=== PATIENT | male | born 1955 | race Caucasian/White ===

== ENCOUNTER 2017-11-30 17:30 | Emergency (ER) | payer MEDICAID ==
--- NOTE | 2017-11-30 18:13 | ED PDOC ---
HPI: Psych/Substance Abuse Time Seen by Provider: 11/30/17 17:55 Chief Complaint (Nursing): Alcohol Ingestion Chief Complaint (Provider): Alcohol Intoxication ED Caveat: Intoxicated History Per: EMS History/Exam Limitations: intoxication Onset/Duration Of Symptoms: Hrs Current Symptoms Are (Timing): Still Present Suicide/Self Injury Attempted (Context): None Modifying Factor(s): Alcohol Additional Complaint(s): 62 year old male brought into the Ed by EMS for alcohol intoxication. Patient history is limited due to his intoxicated state Past Medical History Reviewed: Historical Data, Nursing Documentation, Vital Signs Vital Signs: Last Vital Signs Temp 98.8 F 11/30/17 17:35 Pulse 90 11/30/17 17:35 Resp 19 11/30/17 17:35 BP 140/80 11/30/17 17:35 Pulse Ox 98 11/30/17 17:35 - Medical History PMH: No Chronic Diseases - Family History Family History: States: No Known Family Hx - Allergies Allergies/Adverse Reactions: Allergies Allergy/AdvReac Type Severity Reaction Status Date / Time No Known Allergies Allergy Verified 11/30/17 17:39 Review of Systems Review Of Systems: ROS cannot be obtained secondary to pt's inabilty to answer questions. (cannot be obtained due to patients intoxicated state) Physical Exam - Reviewed Nursing Documentation Reviewed: Yes Vital Signs Reviewed: Yes - Physical Exam Appears: Positive for: Non-toxic (alcohol on breath), No Acute Distress Head Exam: Positive for: NORMAL INSPECTION Skin: Positive for: Normal Color, Warm, Dry. Negative for: Rash Eye Exam: Positive for: Normal appearance, EOMI, PERRL ENT: Positive for: Normal ENT Inspection Neck: Positive for: Normal, Painless ROM, Supple Cardiovascular/Chest: Positive for: Regular Rate, Rhythm. Negative for: Tachycardia Respiratory: Positive for: Normal Breath Sounds. Negative for: Wheezing, Respiratory Distress Gastrointestinal/Abdominal: Positive for: Normal Exam, Bowel Sounds, Soft. Negative for: Guarding Back: Positive for: Normal Inspection. Negative for: L CVA Tenderness, R CVA Tenderness Extremity: Positive for: Normal ROM. Negative for: Tenderness, Deformity Neurologic/Psych: Negative for: Alert, Oriented - ECG O2 Sat by Pulse Oximetry: 98 (RA) Pulse Ox Interpretation: Normal Medical Decision Making Medical Decision Makin Initial Impression 62 year old male presenting with alcohol intoxication Initial Plan: * Alcohol Serum * Reevaluation * * 2346 Pt asleep , well appearing. however will need more time in ED until clinically sober. Documented by Aide Tirado acting as a scribe for Yasmeen Oliva PA-C. All medical record entries made by the Scribe were at my direction and personally dictated by me. I have reviewed the chart and agree that the record accurately reflects my personal performance of the history, physical exam, medical decision making, and the department course for this patient. I have also personally directed, reviewed, and agree with the discharge instructions and disposition. Disposition - Clinical Impression Clinical Impression: Alcohol abuse - Patient ED Disposition Is Patient to be Admitted: Transfer of Care - Disposition Disposition: Routine/Home Disposition Time: 00:00 Condition: STABLE Forms: [facility] (Amharic) Handoff Comments: intoxication
[2017-11-30 22:15] VITALS: RESP 18; TEMP 97.5
[2017-12-01 02:33] VITALS: BP 139/81; PULSE 94; O2SAT 95
== END 2017-12-01 03:35 | disposition home or self-care (01) ==
LOC: H.ER 17:30
DX: F10.129 Alcohol abuse with intoxication, unspecified (principal); Y90.8 Blood alcohol level of 240 mg/100 ml or more

== ENCOUNTER 2018-02-16 19:27 | Emergency (ER) | payer MEDICAID ==
[2018-02-16 19:32] VITALS: BP 143/81; RESP 16; TEMP 95.6; O2SAT 98
[2018-02-16 20:06] LABS: BASO # 0.1 K/uL (0.0-0.2); BASO % 1.3 % (0.0-2.0); EOS # 0.2 K/uL (0.0-0.7); EOS % 5.3 % (0.0-4.0); HEMOGLOBIN 12.1 g/dL (12.0-18.0); LYMPH # 1.5 K/uL (1.0-4.3); LYMPH % 32.8 % (20.0-40.0); MEAN CELL VOLUME 90.1 fl (80.0-94.0); MEAN CORPUSCULAR HEMOGLOBIN 29.2 pg (27.0-31.0); MEAN CORPUSCULAR HGB CONC 32.4 g/dL (33.0-37.0); MEAN PLATELET VOLUME 7.8 fl (7.2-11.7); MONO # 0.3 K/uL (0.0-0.8); MONO % 7.3 % (0.0-10.0); NEUT # 2.5 K/uL (1.8-7.0); NEUT % 53.3 % (50.0-75.0); NRBC % 0.2 % (0.0-0.0); RBC 4.16 Mil/uL (4.40-5.90); WHITE BLOOD COUNT 4.7 K/uL (4.8-10.8)
[2018-02-16 20:28] LABS: ALB/GLOB RATIO 1.1 (1.0-2.1); ALBUMIN 3.9 g/dL (3.5-5.0); ALT/SGPT 31 U/L (21-72); AST/SGOT 43 U/L (17-59); BLOOD UREA NITROGEN 12 mg/dl (9-20); CALCIUM 8.7 mg/dL (8.4-10.2); GFR AFRICAN-AMERICAN > 60; GFR NON-AFRICAN AMERICAN > 60
[2018-02-16] MEDS ORDERED: Naproxen 500 MG TAB PO STA (21:00)
--- NOTE | 2018-02-16 22:00 | ED PDOC ---
HPI: Psych/Substance Abuse Time Seen by Provider: 02/16/18 19:36 Chief Complaint (Nursing): Alcohol Ingestion Chief Complaint (Provider): Alcohol intoxication ED Caveat: Intoxicated History Per: Patient, EMS History/Exam Limitations: intoxication Additional Complaint(s): 62yo male, brought to ED by EMS for evaluation after he was found on street intoxicated. Patient admits to drinking alcohol and is also complaining of chest pain. Patient is requesting his "heart to be checked out." Patient also states that he is homeless. The history provided is unreliable due to the patient's intoxicated status. Past Medical History Reviewed: Historical Data Vital Signs: Last Vital Signs Temp 95.6 F L 02/16/18 19:28 Pulse 86 02/16/18 19:28 Resp 16 02/16/18 19:28 BP 143/81 02/16/18 19:28 Pulse Ox 98 02/16/18 19:28 - Medical History PMH: Benign Prostatic Hyperplasia, HTN Other PMH: "leg pains" - Surgical History Surgical History: No Surg Hx - Family History Family History: States: Unknown Family Hx - Social History Alcohol: > 2 Drinks/Day Drugs: Denies - Immunization History Hx Tetanus Toxoid Vaccination: No Hx Influenza Vaccination: No Hx Pneumococcal Vaccination: No - Allergies Allergies/Adverse Reactions: Allergies Allergy/AdvReac Type Severity Reaction Status Date / Time No Known Allergies Allergy Verified 11/30/17 17:39 Review of Systems ROS Statement: Except As Marked, All Systems Reviewed And Found Negative (as per HPI) Cardiovascular: Positive for: Chest Pain Psych: Positive for: Other (alcohol intoxication) Physical Exam - Reviewed Nursing Documentation Reviewed: Yes Vital Signs Reviewed: Yes - Physical Exam Appears: Positive for: No Acute Distress (intoxicated) Head Exam: Positive for: ATRAUMATIC, NORMOCEPHALIC Skin: Positive for: Warm, Dry Eye Exam: Positive for: EOMI, PERRL, Conjunctival injection ENT: Positive for: Pharynx Is (clear), Other (AOB) Neck: Positive for: Painless ROM, Supple Cardiovascular/Chest: Positive for: Regular Rate, Rhythm. Negative for: Murmur Respiratory: Positive for: Normal Breath Sounds. Negative for: Wheezing, Respiratory Distress Gastrointestinal/Abdominal: Positive for: Soft, Other (protuberent obese abdomen ). Negative for: Tenderness Back: Positive for: Normal Inspection Extremity: Positive for: Pedal Edema (bilateral lower leg pitting edema). Negative for: Deformity Neurologic/Psych: Positive for: Oriented (x2), Other (slurred speech, mild lethargy). Negative for: Motor/Sensory Deficits - Laboratory Results Result Diagrams: 02/16/18 19:55 02/16/18 19:55 - ECG ECG: Positive for: Interpreted By Me, Viewed By Me ECG Rhythm: Positive for: Normal QRS, Normal ST Segment, Sinus Rhythm Rate: 81 O2 Sat by Pulse Oximetry: 98 (RA) Pulse Ox Interpretation: Normal Medical Decision Making Medical Decision Making: Impression: Alcohol intoxication, chest pain Plan: -- EKG -- UDS -- Naproxen 500 mg PO -- Labs Scribe Attestation: Documented by Jeannette Bhakta, acting as a scribe for Alisha Tamayo MD Provider Scribe Attestation: All medical record entries made by the Scribe were at my direction and personally dictated by me. I have reviewed the chart and agree that the record accurately reflects my personal performance of the history, physical exam, medical decision making, and the department course for this patient. I have also personally directed, reviewed, and agree with the discharge instructions and disposition. Disposition - Clinical Impression Clinical Impression: Alcohol abuse with intoxication - Patient ED Disposition Is Patient to be Admitted: Transfer of Care - Disposition Disposition: Transfer of Care Disposition Time: 00:00 Condition: FAIR Patient Signed Over To: Balta Mcelroy Handoff Comments: Pending sobriety, reeval, final ER disposition
[2018-02-16 22:15] VITALS: PULSE 81
[2018-02-16 22:40] LABS: BENZODIAZEPINES, UR NEGATIVE (NEGATIVE)
[2018-02-16 22:41] LABS: BARBITURATES, UR NEGATIVE (NEGATIVE); OPIATES, UR NEGATIVE (NEGATIVE); PHENCYCLIDINE, UR NEGATIVE (NEGATIVE)
--- NOTE | 2018-02-17 00:01 | ED PDOC ---
- Laboratory Results Result Diagrams: 02/16/18 19:55 02/16/18 19:55 - ECG O2 Sat by Pulse Oximetry: 98 (RA) Medical Decision Making Medical Decision Makin Patient signed out to provider from Dr. Tamayo pending sobriety. 0600 Upon re-evaluation patient is awake, alert, and oriented x3. Patient walks with a steady gait and is stable for discharge home. Scribe Attestation: Documented by Claudia Bettencourt acting as a scribe for Reggie Solano MD. DO Scribe Attestation: All medical record entries made by the Scribe were at my direction and personally dictated by me. I have reviewed the chart and agree that the record accurately reflects my personal performance of the history, physical exam, medical decision making, and the department course for this patient. I have also personally directed, reviewed, and agree with the discharge instructions and disposition. Disposition - Clinical Impression Clinical Impression: Alcohol abuse with intoxication - POA Present On Arrival: None - Disposition Disposition: Routine/Home Disposition Time: 06:00 Condition: STABLE Instructions: Alcohol Abuse and Alcoholism (DC) Forms: [employer] Connect (Finnish)
--- NOTE | 2018-02-17 08:58 | CARD ---
APPROVED REPORT EKG Measurement Heart [id number] <Conclusion> Normal sinus rhythm Normal ECG
== END 2018-02-17 06:55 | disposition home or self-care (01) ==
LOC: H.ER 19:27
DX: F10.129 Alcohol abuse with intoxication, unspecified (principal); I10 Essential (primary) hypertension; Z59.0 Homelessness; N40.0 Benign prostatic hyperplasia without lower urinary tract symptoms

== ENCOUNTER 2018-10-26 23:17 | Emergency (ER) | payer MEDICAID ==
[2018-10-27] MEDS ORDERED: Permethrin 5% CREAM TOP STA (00:33)
[2018-10-27 01:21] LABS: BASO % 1.3 % (0.0-2.0); EOS # 0.2 K/uL (0.0-0.7); EOS % 6.2 % (0.0-4.0); HEMOGLOBIN 12.2 g/dL (12.0-18.0); LYMPH # 1.3 K/uL (1.0-4.3); LYMPH % 34.8 % (20.0-40.0); MEAN CELL VOLUME 99.1 fl (80.0-94.0); MEAN CORPUSCULAR HEMOGLOBIN 31.9 pg (27.0-31.0); MEAN CORPUSCULAR HGB CONC 32.2 g/dL (33.0-37.0); MEAN PLATELET VOLUME 8.4 fl (7.2-11.7); MONO # 0.4 K/uL (0.0-0.8); MONO % 12.1 % (0.0-10.0); NEUT # 1.7 K/uL (1.8-7.0); NEUT % 45.6 % (50.0-75.0); NRBC % 0.1 % (0.0-0.0); RBC 3.84 Mil/uL (4.40-5.90); RED CELL DISTRIBUTION WIDTH 17.8 % (11.5-14.5); WHITE BLOOD COUNT 3.7 K/uL (4.8-10.8)
[2018-10-27 01:24] LABS: ALB/GLOB RATIO 1.1 (1.0-2.1); ALBUMIN 3.5 g/dL (3.5-5.0); ALT/SGPT 26 U/L (21-72); AST/SGOT 40 U/L (17-59); BLOOD UREA NITROGEN 14 mg/dl (9-20); CALCIUM 8.6 mg/dL (8.4-10.2); GFR NON-AFRICAN AMERICAN > 60
[2018-10-27 01:38] LABS: BARBITURATES, UR NEGATIVE (NEGATIVE); BENZODIAZEPINES, UR NEGATIVE (NEGATIVE); OPIATES, UR NEGATIVE (NEGATIVE); PHENCYCLIDINE, UR NEGATIVE (NEGATIVE)
[2018-10-27 01:43] LABS: SQUAMOUS EPITHIAL < 1 /hpf (0-5); URINE BACTERIA RARE (<OCC); URINE BILIRUBIN NEGATIVE (NEGATIVE); URINE BLOOD NEGATIVE (NEGATIVE); URINE CLARITY CLEAR (Clear); URINE COLOR STRAW (YELLOW); URINE GLUCOSE (UA) NEG (Normal); URINE LEUKOCYTE ESTERASE NEG Leu/uL (Negative); URINE PROTEIN NEGATIVE (NEGATIVE); URINE UROBILINOGEN 0.2-1.0 mg/dL (0.2-1.0)
--- NOTE | 2018-10-27 02:51 | ED PDOC ---
HPI: Psych/Substance Abuse Time Seen by Provider: 10/27/18 00:14 Chief Complaint (Nursing): Alcohol Ingestion Chief Complaint (Provider): Alcohol Ingestion History Per: Patient, EMS History/Exam Limitations: intoxication (of patient) Onset/Duration Of Symptoms: Mins (prior to arrival) Current Symptoms Are (Timing): Still Present Additional Complaint(s): 63 year old male presents to the ED via EMS for evaluation after being found publicly intoxicated. He admits to drinking alcohol today and additionally reports that he lives [place] the [place] and looked down today to see "bugs" all over his body. Otherwise denies fever, sick contacts, recent travel, trauma, and falls. Of note, due to patient's intoxication, his pmhx was unobtainable, and the history is limited. PMD: none provided Past Medical History Reviewed: Unable To Obtain Vital Signs: Last Vital Signs Temp 97.8 F 10/27/18 00:04 Pulse 81 10/27/18 00:04 Resp 20 10/27/18 00:04 BP 127/80 10/27/18 00:04 Pulse Ox 95 10/27/18 00:04 - Family History Family History: States: No Known Family Hx - Allergies Allergies/Adverse Reactions: Allergies Allergy/AdvReac Type Severity Reaction Status Date / Time No Known Allergies Allergy Verified 10/27/18 00:07 Review of Systems ROS Statement: Except As Marked, All Systems Reviewed And Found Negative Constitutional: Negative for: Fever Skin: Positive for: Other (bugs on skin) Psych: Positive for: Other (alcohol ingestion) Physical Exam - Reviewed Nursing Documentation Reviewed: Yes Vital Signs Reviewed: Yes - Physical Exam Appears: Positive for: No Acute Distress (but intoxicated appearing with alcohol on breath) Head Exam: Positive for: ATRAUMATIC, NORMOCEPHALIC Skin: Positive for: Normal Color. Negative for: Rash Eye Exam: Positive for: Normal appearance ENT: Positive for: Normal ENT Inspection Neck: Positive for: Normal Cardiovascular/Chest: Positive for: Regular Rate, Rhythm Respiratory: Positive for: Normal Breath Sounds. Negative for: Respiratory Distress Gastrointestinal/Abdominal: Positive for: Normal Exam, Soft. Negative for: Tenderness Extremity: Positive for: Normal ROM Neurologic/Psych: Positive for: Alert (and awake), Other (slurred speech) - Laboratory Results Result Diagrams: 10/27/18 01:10/27/18 01:08 - ECG O2 Sat by Pulse Oximetry: 95 (RA) Pulse Ox Interpretation: Normal Medical Decision Making Medical Decision Making: Time: 32 Initial Impression: alcohol intoxication Initial Plan: --Alcohol serum --CMP --Drug screen --CBC with differential --Accucheck --Urinalysis --Permethrin 5% 1 applic TOP 0200 Sleeping comfortably. 0421 Awake but gait is still unsteady. -- Scribe Attestation: Documented by Sarah Davis, acting as a scribe for Chandler Crisostomo PA-C. Provider Scribe Attestation: All medical record entries made by the Scribe were at my direction and perso felipe dictated by me. I have reviewed the chart and agree that the record accurately reflects my personal performance of the history, physical exam, medical decision making, and the department course for this patient. I have also personally directed, reviewed, and agree with the discharge instructions and disposition. Disposition - Clinical Impression Clinical Impression: Alcohol intoxication - Patient ED Disposition Is Patient to be Admitted: Transfer of Care (Dr. Solano continued care at the end of my shift) - Disposition Referrals: [facility] [Outside] Disposition Time: 05:00 Condition: STABLE Additional Instructions: AMARI PEACOCK, thank you for letting us take care of you today. Your provider was Reggie Solano MD and you were treated for ETOH. The emergency medical care you received today was directed at your acute symptoms. If you were prescribed any medication, please fill it and take as directed. It may take several days for your symptoms to resolve. Return to the Emergency Department if your symptoms worsen, do not improve, or if you have any other problems. Please contact your doctor or call one of the physicians/clinics you have been referred to that are listed on the Patient Visit Information form that is included in your discharge packet. Bring any paperwork you were given at discharge with you along with any medications you are taking to your follow up visit. Our treatment cannot replace ongoing medical care by a primary care provider outside of the emergency department. Thank you for allowing the [facility] team to be part of your care today. If you had an X-Ray or CT scan: A Radiologist will review the ED reading if any change in treatment is needed we will contact you. If you had a blood, urine, or wound culture: It will take several days for the results, if any change in treatment is needed we will contact you. If you had an STI test: It will take 48 hours for the results. Please call after 1 week if you have not heard back. Instructions: Alcohol Abuse and Alcoholism (DC) Forms: [employer] (Italian)
[2018-10-27 06:52] VITALS: BP 138/86; PULSE 89; RESP 18; TEMP 98.2
[2018-10-27 22:51] VITALS: O2SAT 95
== END 2018-10-27 06:50 | disposition home or self-care (01) ==
LOC: EDBD → H.ER 23:17 → MERGE 23:17 → H.ER 10-27 06:50
DX: F10.129 Alcohol abuse with intoxication, unspecified (principal)

== ENCOUNTER 2018-11-03 20:31 | Emergency (ER) | payer MEDICAID ==
[2018-11-03 20:37] VITALS: TEMP 96.8
[2018-11-03 21:20] LABS: BASO # 0.1 K/uL (0.0-0.2); BASO % 1.4 % (0.0-2.0); EOS # 0.2 K/uL (0.0-0.7); EOS % 4.1 % (0.0-4.0); HEMOGLOBIN 13.2 g/dL (12.0-18.0); LYMPH # 1.7 K/uL (1.0-4.3); LYMPH % 36.3 % (20.0-40.0); MEAN CELL VOLUME 98.4 fl (80.0-94.0); MEAN CORPUSCULAR HEMOGLOBIN 32.8 pg (27.0-31.0); MEAN CORPUSCULAR HGB CONC 33.4 g/dL (33.0-37.0); MEAN PLATELET VOLUME 8.1 fl (7.2-11.7); MONO # 0.4 K/uL (0.0-0.8); MONO % 9.2 % (0.0-10.0); NEUT # 2.3 K/uL (1.8-7.0); NRBC % 0.1 % (0.0-0.0); RBC 4.01 Mil/uL (4.40-5.90); RED CELL DISTRIBUTION WIDTH 18.2 % (11.5-14.5); WHITE BLOOD COUNT 4.6 K/uL (4.8-10.8)
[2018-11-03 21:20] LABS: VENOUS BLOOD GAS BASE EXCESS 2.9 mmol/L (0.0-2.0); VENOUS BLOOD GAS PCO2 54 mmHg (40-60); VENOUS BLOOD GAS PO2 25 mm/Hg (30-55); VENOUS BLOOD PH 7.35 (7.32-7.43)
[2018-11-03 21:37] LABS: CARBAMAZEPINE < 3.0 ug/mL (4.0-12.0); DILANTIN (PHENYTOIN) < 3.0 ug/ML (10-20)
[2018-11-03 21:38] LABS: URINE BACTERIA RARE (<OCC); URINE BILIRUBIN NEGATIVE (NEGATIVE); URINE BLOOD NEGATIVE (NEGATIVE); URINE CLARITY CLEAR (Clear); URINE COLOR STRAW (YELLOW); URINE GLUCOSE (UA) NEG (NEGATIVE); URINE LEUKOCYTE ESTERASE NEG Leu/uL (Negative); URINE PROTEIN NEGATIVE (NEGATIVE); URINE UROBILINOGEN 0.2-1.0 mg/dL (0.2-1.0)
[2018-11-03 21:38] LABS: VALPROIC ACID < 10.0 ug/mL (50.0-100.0)
[2018-11-03] MEDS ORDERED: Sodium Chloride 0.9% 1,000 ML IV STA (21:38)
[2018-11-03 21:51] LABS: BENZODIAZEPINES, UR NEGATIVE (NEGATIVE)
[2018-11-03 21:54] LABS: BARBITURATES, UR NEGATIVE (NEGATIVE); OPIATES, UR NEGATIVE (NEGATIVE); PHENCYCLIDINE, UR NEGATIVE (NEGATIVE)
[2018-11-03 21:55] LABS: ALB/GLOB RATIO 1.1 (1.0-2.1); ALBUMIN 3.8 g/dL (3.5-5.0); ALT/SGPT 38 U/L (21-72); AST/SGOT 67 U/L (17-59); CALCIUM 8.6 mg/dL (8.4-10.2); GFR NON-AFRICAN AMERICAN > 60
[2018-11-03 21:56] LABS: BLOOD UREA NITROGEN 11 mg/dl (9-20)
--- NOTE | 2018-11-03 22:44 | ED PDOC ---
HPI: Psych/Substance Abuse Time Seen by Provider: 11/03/18 20:40 Chief Complaint (Nursing): Seizure Chief Complaint (Provider): alcohol intoxication ED Caveat: Intoxicated History Per: Patient, EMS Onset/Duration Of Symptoms: Hrs (today) Current Symptoms Are (Timing): Still Present Additional Complaint(s): Arnie Muñoz is a 63 year old male, with a past medical history of alcohol abuse, who was brought to the emergency department by EMS for public intoxication. Per EMS, patient was at a store trying to buy women's bag but was noted to be intoxicated. Store spooler called the police. EMS report patient had soiled himself with urine and would have jerking movements to bilateral upper extremities but would be awake during the episodes. EMS further state they had s een this jerking behavior in him previously. Patient admits to alcohol usage but history is limited by intoxication. PMD: Unable to obtain Past Medical History Reviewed: Historical Data, Nursing Documentation, Vital Signs Vital Signs: Last Vital Signs Temp 96.8 F L 11/03/18 20:34 Pulse 75 11/03/18 20:34 Resp 16 11/03/18 20:34 BP 163/102 H 11/03/18 20:34 Pulse Ox 99 11/03/18 20:34 - Medical History PMH: HTN - Surgical History Surgical History: No Surg Hx Denies: Coronary Stent, Pacemaker - Family History Family History: States: Unknown Family Hx - Allergies Allergies/Adverse Reactions: Allergies Allergy/AdvReac Type Severity Reaction Status Date / Time No Known Allergies Allergy Verified 11/03/18 20:34 Review of Systems Review Of Systems: ROS cannot be obtained secondary to pt's inabilty to answer questions. Physical Exam - Reviewed Nursing Documentation Reviewed: Yes Vital Signs Reviewed: Yes - Physical Exam Appears: Positive for: No Acute Distress (No signs of trauma) Head Exam: Positive for: ATRAUMATIC, NORMAL INSPECTION, NORMOCEPHALIC Skin: Positive for: Normal Color, Warm, Dry Eye Exam: Positive for: Normal appearance, EOMI, PERRL Neck: Positive for: Normal, Painless ROM Cardiovascular/Chest: Positive for: Regular Rate, Rhythm. Negative for: Murmur Respiratory: Positive for: Normal Breath Sounds. Negative for: Respiratory Distress Gastrointestinal/Abdominal: Positive for: Normal Exam, Soft. Negative for: Tenderness Extremity: Positive for: Normal ROM (upper and lower extremities). Negative for: Deformity, Swelling Neurologic/Psych: Positive for: Alert, Gait (unsteady), Other (slurred speech). Negative for: Oriented (x1) - Laboratory Results Result Diagrams: 11/03/18 21:01 11/03/18 21:01 - ECG O2 Sat by Pulse Oximetry: 99 (RA) Pulse Ox Interpretation: Normal Medical Decision Making Medical Decision Making: Time: 20:40 A/P: 63 y/o male presenting for alcohol intoxication. Description of jerking does not sound to be epileptic. However, will get blood work and CT to evaluate. Likely presenting primarily due to alcohol intoxication. Will continue to monitor. Initial Plan: --VBG Shock Panel --Head w/o contrast [CT] --Alcohol serum --Carbamazepine --CMP --CPK --Dilantin --Drug screen, urine --[place] --Magnesium --Valproic acid --CBC w/ differential --Sodium Chloride 1,000 ml IV 1,000 mls/hr --Urinalysis --Reevaluation 2141 Head w/o contrast [CT] Findings: The study shows normal configuration of sella turcica. There are no intra or extra-axial collections. There is no mass effect or midline shift. There is no evidence of hematoma formation. No hydrocephalus is present. No abnormal calcifications are noted. Changes of diffuse cerebellar and cerebral atrophy are noted with symmetrically dilated ventricles and cortical sulci. There are mild bilateral periventricular hypolucencies compatible with white matter ischemic disease. No significant other abnormalities are seen either in the posterior fossa or supratentorial compartment. There is mucosal thickening and partial opacification involving left frontal, bilateral ethmoid air cells and maxillary sinuses consistent with chronic sinusitis. IMPRESSION: 1. Diffuse age-appropriate cerebellar and cerebral atrophy. 2. Bilateral periventricular hypolucencies compatible with chronic white matter ischemic disease. 3. Sinusitis as above. 4. No evidence of acute intracranial pathology. 300 Patient waking up Steady gait on examination Alert, oriented 530 Patient with steady gait, no longer intoxicated appearing Patient alert and oriented Stable for discharge -------- Scribe Attestation: Documented by Reynold Person, acting as a scribe for Balta Mcelroy MD. Provider Scribe Attestation: All medical record entries made by the Scribe were at my direction and personally dictated by me. I have reviewed the chart and agree that the record accurately reflects my personal performance of the history, physical exam, medical decision making, and the department course for this patient. I have also personally directed, reviewed, and agree with the discharge instructions and disposition. Disposition - Clinical Impression Clinical Impression: Alcohol intoxication - Patient ED Disposition Is Patient to be Admitted: No - Disposition Referrals: Alcoholics Anonymous [Outside] Disposition: Routine/Home Disposition Time: 05:21 Condition: GOOD Instructions: Alcohol Abuse and Alcoholism (DC) Forms: [facility] (Kenyan) Print Language: KHMER
[2018-11-04 05:26] VITALS: BP 130/75; PULSE 88; RESP 20; O2SAT 96
--- NOTE | 2018-11-04 11:36 | CT ---
Date of service: 11/03/2018 PROCEDURE: CT HEAD WITHOUT CONTRAST. HISTORY: AMS, possible seizure COMPARISON: None available. TECHNIQUE: Axial computed tomography images were obtained through the head/brain without intravenous contrast. Radiation dose: Total exam DLP = 796.64 mGy-cm. This CT exam was performed using one or more of the following dose reduction techniques: Automated exposure control, adjustment of the mA and/or kV according to patient size, and/or use of iterative reconstruction technique. FINDINGS: HEMORRHAGE: No intracranial hemorrhage. BRAIN: No mass effect or edema. No atrophy or chronic microvascular ischemic changes. VENTRICLES: Unremarkable. No hydrocephalus. CALVARIUM: Unremarkable. PARANASAL SINUSES: Unremarkable as visualized. No significant inflammatory changes. MASTOID AIR CELLS: Unremarkable as visualized. No inflammatory changes. OTHER FINDINGS: None. IMPRESSION: Normal CT of the Head.
== END 2018-11-04 06:16 | disposition home or self-care (01) ==
LOC: MERGE 20:31 → EDBD 20:31 → H.ER 20:31
DX: F10.129 Alcohol abuse with intoxication, unspecified (principal); R56.9 Unspecified convulsions; I10 Essential (primary) hypertension; J32.9 Chronic sinusitis, unspecified
CPT/HCPCS: 70450; 80053; 80156; 80164; 80178; 80185; 80320; 80324; 80345; 80346; 80349; 80353; 80358; 80361; 81003; 82550; 82803; 82948; 83735; 83992; 85025; 96360; 99285; J7030

== ENCOUNTER 2018-11-04 19:15 | Emergency (ER) | payer MEDICAID ==
[2018-11-04 19:23] VITALS: TEMP 98
--- NOTE | 2018-11-04 20:43 | ED PDOC ---
HPI: Psych/Substance Abuse Time Seen by Provider: 11/04/18 19:24 Chief Complaint (Nursing): Alcohol Ingestion Chief Complaint (Provider): Alcohol Ingestion History Per: EMS History/Exam Limitations: intoxication Onset/Duration Of Symptoms: Unknown Current Symptoms Are (Timing): Still Present Suicide/Self Injury Attempted (Context): None Modifying Factor(s): Alcohol Additional Complaint(s): 63 y/o male brought in by EMS for public alcohol intoxication. Patient admits to drinking alcohol. Additionally, patient denies any drug use and any other injury. History is obtained from EMS. History is limited due to the patient's intoxication. Past Medical History Reviewed: Historical Data, Nursing Documentation, Vital Signs Vital Signs: Last Vital Signs Temp 98 F 11/04/18 19:21 Pulse 101 H 11/04/18 19:21 Resp 18 11/04/18 19:21 BP 124/85 11/04/18 19:21 Pulse Ox 98 11/04/18 19:21 - Medical History PMH: Benign Prostatic Hyperplasia, HTN - Surgical History Surgical History: No Surg Hx Denies: Coronary Stent, Pacemaker - Family History Family History: States: Unknown Family Hx - Social History Alcohol: > 2 Drinks/Day Drugs: Denies - Immunization History Hx Tetanus Toxoid Vaccination: No Hx Influenza Vaccination: No Hx Pneumococcal Vaccination: No - Allergies Allergies/Adverse Reactions: Allergies Allergy/AdvReac Type Severity Reaction Status Date / Time No Known Allergies Allergy Verified 11/04/18 19:21 Review of Systems Review Of Systems: ROS cannot be obtained secondary to pt's inabilty to answer questions. Physical Exam - Reviewed Nursing Documentation Reviewed: Yes Vital Signs Reviewed: Yes - Physical Exam Appears: Positive for: No Acute Distress (Intoxicated appearing) Head Exam: Positive for: ATRAUMATIC, NORMOCEPHALIC Skin: Positive for: Normal Color, Warm, Dry Eye Exam: Positive for: Normal appearance Neck: Positive for: Normal, Painless ROM Cardiovascular/Chest: Negative for: Bradycardia, Tachycardia Respiratory: Negative for: Accessory Muscle Use, Respiratory Distress Extremity: Negative for: Pedal Edema, Deformity Neurologic/Psych: Positive for: Alert, Oriented (x2), Other (Slurred speech). Negative for: Gait (cannot access gait due to intoxication) - ECG O2 Sat by Pulse Oximetry: 98 (RA) Pulse Ox Interpretation: Normal Medical Decision Making Medical Decision Making: Time: 2001 A/P: 63 y/o alcohol intoxicated male -- Vital signs stable -- No trauma noticed -- Will continue to observe until sober 5AM --Patient had no acute events overnight --Sober, awake, alert with steady gait Scribe Attestation: Documented by Jolanta Valladares, acting as a scribe for Balta Mcelroy MD. Provider Scribe Attestation: All medical record entries made by the Scribe were at my direction and personally dictated by me. I have reviewed the chart and agree that the record accurately reflects my personal performance of the history, physical exam, medical decision making, and the department course for this patient. I have also personally directed, reviewed, and agree with the discharge instructions and disposition. Disposition - Clinical Impression Clinical Impression: Alcohol abuse - Disposition Referrals: Alcoholics Anonymous [Outside] Serenity Mcnulty MD [Family Provider] - Disposition Time: 05:00 Condition: IMPROVED Instructions: Alcohol Abuse and Alcoholism (DC) Forms: [facility] (Turkmen) Print Language: TONGAN
[2018-11-05 05:45] VITALS: BP 135/88; PULSE 89; RESP 22
[2018-11-05 06:35] VITALS: O2SAT 98
== END 2018-11-05 05:55 | disposition home or self-care (01) ==
LOC: H.ER 19:15
DX: F10.129 Alcohol abuse with intoxication, unspecified (principal); I10 Essential (primary) hypertension